=== PATIENT | male | born 1965 | race Caucasian/White ===

== ENCOUNTER 2019-09-18 09:40 | Emergency (ER) | payer OTHER ==
--- NOTE | 2019-09-18 10:04 | ERPHSYRPT ---
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 Upon arrival to the emergency department, he states he is a little lightheaded but much less dizzy now. Patient has never had symptoms like this before. Patient did eat and drink a few times prior to his symptoms. He denies chest pain he denies shortness of breath he denies abdominal pain. Patient was seen by a nurse practitioner at the facility and was told to come to the emergency room for further evaluation. Patient has no medical problems other been diagnosed in the past. Timing/Duration: today Severity: mild Character of Deficits: none Deficits: no difficulties Baseline/Normal Cognition: alert oriented x 3 Current Cognition: alert oriented x 3 Baseline Gait: walks w/o assistance Associated Symptoms: nausea Allergies/Adverse Reactions: No Known Drug Allergies Allergy (Unverified 09/18/19 10:08) Home Medications: No Reportable Medications [No Reported Medications] 09/18/19 [History] - Review of Systems Constitutional: No Symptoms Eyes: No Symptoms Ears, Nose, & Throat: No Symptoms Respiratory: No Symptoms Cardiac: No Symptoms Abdominal/Gastrointestinal: No Symptoms Genitourinary Symptoms: No Symptoms Musculoskeletal: No Symptoms Skin: No Symptoms Neurological: Dizziness Psychological: No Symptoms Endocrine: No Symptoms Hematologic/Lymphatic: No Symptoms Immunological/Allergic: No Symptoms All Other Systems: Reviewed and Negative - Past Medical History Neurological History: No Pertinent History ENT History: No Pertinent History Cardiac History: No Pertinent History Respiratory History: No Pertinent History Endocrine Medical History: No Pertinent History Musculoskeletal History: No Pertinent History GI Medical History: No Pertinent History History: No Pertinent History Psycho-Social History: No Pertinent History Male Reproductive Disorders: No Pertinent History - Past Surgical History Neuro Surgical History: No Pertinent History Cardiac: No Pertinent History Respiratory: No Pertinent History Gastrointestinal: No Pertinent History Genitourinary: No Pertinent History Musculoskeletal: No Pertinent History Male Surgical History: No Pertinent History - Nursing Vital Signs Nursing Vital Signs: Initial Vital Signs Temperature 97.3 F 09/18/19 09:48 Pulse Rate 72 09/18/19 09:48 Respiratory Rate 18 09/18/19 09:48 Blood Pressure 132/66 09/18/19 09:48 O2 Sat by Pulse Oximetry 96 09/18/19 09:48 Pain Scale Pain Intensity 0 - Emerson Coma Scale Best Eye Response (Jason): (4) open spontaneously Best Verbal Response (Emerson): (5) oriented Best Motor Response (Emerson): (6) obeys commands Emerson Total: 15 - Physical Exam General Appearance: no apparent distress, alert, anxiety Eye Exam: bilateral eye: normal inspection, PERRL, EOMI Ears, Nose, Throat Exam: normal ENT inspection, TMs normal, moist mucous membranes Neck Exam: normal inspection, non-tender, supple, full range of motion Respiratory: normal breath sounds, lungs clear, No chest tenderness, No respiratory distress Cardiovascular: regular rate/rhythm, normal heart sounds, normal peripheral pulses Gastrointestinal: soft, normal bowel sounds, No tenderness Rectal Exam: not done Back Exam: normal inspection, normal range of motion, No CVA tenderness, No vertebral tenderness Extremity Exam: normal inspection, normal range of motion, pelvis stable Mental Status: alert, oriented x 3, cooperative equity holder Exam: normal hearing, normal speech, PERRL Coordination/Gait: normal finger to nose, normal gait Motor/Sensory: no motor deficit, no sensory deficit Skin Exam: normal color, warm, dry SpO2 Interpretation: normal O2 Delivery: Room Air Ordered Tests: Active Orders 24 hr Category Date Time Status Accucheck STAT Care 09/18/19 10:19 Active Clean Catch Urine Specimen STAT Care 09/18/19 10:19 Active EKG-ER Only STAT Care 09/18/19 10:19 Active IV Insertion STAT Care 09/18/19 10:19 Active CBC W DIFF Stat Lab 09/18/19 10:50 Completed CMP Stat Lab 09/18/19 10:50 Completed CULTURE,URINE Stat Lab 09/18/19 12:30 Received ETHYL ALCOHOL Stat Lab 09/18/19 10:50 Completed TROPONIN Q3H Lab 09/18/19 10:50 Completed TROPONIN Q3H Lab 09/18/19 13:30 Ordered TROPONIN Q3H Lab 09/18/19 16:30 Ordered TROPONIN Q3H Lab 09/18/19 19:30 Ordered TROPONIN Q3H Lab 09/18/19 22:30 Ordered UA W/RFX UR CULTURE Stat Lab 09/18/19 12:30 Completed Urine Triage Profile Stat Lab 09/18/19 12:30 Received Medication Summary Discontinued Medications Generic Name Dose Route Start Last Admin Trade Name Rufina PRN Reason Stop Dose Admin Sodium Chloride 1,000 mls @ 999 mls/hr 09/18/19 10:19 09/18/19 11:07 Sodium Chloride 0.9% 1000 Ml IV 09/18/19 11:19 999 mls/hr .Q1H1M STA Administration Sodium Chloride Confirm 09/18/19 11:01 Sodium Chloride 0.9% 1000 Ml Administered 09/18/19 11:02 Dose 1,000 mls @ ud .ROUTE .STK-MED ONE Ondansetron HCl 4 mg 09/18/19 10:19 09/18/19 11:07 Zofran 4 Mg/2 Ml Vial IV 09/18/19 10:20 4 mg STAT ONE Administration Ondansetron HCl Confirm 09/18/19 11:00 Zofran 4 Mg/2 Ml Vial Administered 09/18/19 11:01 Dose 4 mg .ROUTE .STK-MED ONE Lab/Rad Data: Laboratory Result Diagrams 09/18/19 10:50 09/18/19 10:50 Laboratory Results 09/18/19 09/18/19 09/18/19 Range/Units 12:30 10:50 10:50 WBC (4.0-10.5) K/mm3 RBC (4.1-5.6) M/mm3 Hgb (12.5-18.0) gm/dl Hct (42-50) % MCV (78-100) fl MCH (26-32) pg MCHC (32-36) g/dl RDW (11.5-14.0) % Plt Count (150-450) K/mm3 MPV (7.5-11.0) fl Gran % (36.0-66.0) % Eos # (Auto) (0-0.5) Absolute Lymphs (auto) (1.0-4.6) Absolute Monos (auto) (0.0-1.3) Lymphocytes % (24.0-44.0) % Monocytes % (0.0-12.0) % Eosinophils % (0.00-5.0) % Basophils % (0.0-0.4) % Absolute Granulocytes (1.4-6.9) Basophils # (0-0.4) Sodium 142 (137-145) mmol/L Potassium 3.9 (3.5-5.1) mmol/L Chloride 103 (98-107) mmol/L Carbon Dioxide 30 (22-30) mmol/L Anion Gap 13.7 (5-15) MEQ/L BUN 13 (9-20) mg/dL Creatinine 0.65 L (0.66-1.25) mg/dL Estimated GFR > 60.0 ML/MIN Glucose 100 (74-106) mg/dL Calcium 9.4 (8.4-10.2) mg/dL Total Bilirubin 1.30 (0.2-1.3) mg/dL AST 24 (17-59) U/L ALT 22 (0-50) U/L Alkaline Phosphatase 101 (38-126) U/L Troponin I < 0.012 (0.000-0.034) ng/mL Serum Total Protein 7.7 (6.3-8.2) g/dL Albumin 4.3 (3.5-5.0) g/dL Urine Color YELLOW (YELLOW) Urine Appearance SLIGHTLY CLOUDY (CLEAR) Urine pH 5.0 (5-6) Ur Specific [place] 1.024 (1.005-1.025) Urine Protein NEGATIVE (Negative) Urine Ketones NEGATIVE (NEGATIVE) Urine Blood NEGATIVE (0-5) Ramsey/ul Urine Nitrite NEGATIVE (NEGATIVE) Urine Bilirubin NEGATIVE (NEGATIVE) Urine Urobilinogen NEGATIVE (0-1) mg/dL Ur Leukocyte Esterase NEGATIVE (NEGATIVE) Urine WBC (Auto) 6-10 (0-5) /HPF Urine RBC (Auto) NONE (0-2) /HPF U Hyaline Cast (Auto) 3-5 (0-2) /LPF U Epithel Cells (Auto) NONE (FEW) /HPF Urine Bacteria (Auto) RARE (NEGATIVE) /HPF Urine Mucus (Auto) SLIGHT (NEGATIVE) /HPF Urine Culture Reflexed YES (NO) Urine Glucose NEGATIVE (NEGATIVE) mg/dL Ethyl Alcohol < 10 (0-10) mg/dL 09/18/19 Range/Units 10:50 WBC 13.0 H (4.0-10.5) K/mm3 RBC 5.49 (4.1-5.6) M/mm3 Hgb 16.5 (12.5-18.0) gm/dl Hct 48.5 (42-50) % MCV 88.3 (78-100) fl MCH 30.1 (26-32) pg MCHC 34.0 (32-36) g/dl RDW 13.3 (11.5-14.0) % Plt Count 185 (150-450) K/mm3 MPV 11.3 H (7.5-11.0) fl Gran % 84.0 H (36.0-66.0) % Eos # (Auto) 0.05 (0-0.5) Absolute Lymphs (auto) 1.31 (1.0-4.6) Absolute Monos (auto) 0.69 (0.0-1.3) Lymphocytes % 10.1 L (24.0-44.0) % Monocytes % 5.3 (0.0-12.0) % Eosinophils % 0.4 (0.00-5.0) % Basophils % 0.2 (0.0-0.4) % Absolute Granulocytes 10.95 H (1.4-6.9) Basophils # 0.03 (0-0.4) Sodium (137-145) mmol/L Potassium (3.5-5.1) mmol/L Chloride (98-107) mmol/L Carbon Dioxide (22-30) mmol/L Anion Gap (5-15) MEQ/L BUN (9-20) mg/dL Creatinine (0.66-1.25) mg/dL Estimated GFR ML/MIN Glucose (74-106) mg/dL Calcium (8.4-10.2) mg/dL Total Bilirubin (0.2-1.3) mg/dL AST (17-59) U/L ALT (0-50) U/L Alkaline Phosphatase (38-126) U/L Troponin I (0.000-0.034) ng/mL Serum Total Protein (6.3-8.2) g/dL Albumin (3.5-5.0) g/dL Urine Color (YELLOW) Urine Appearance (CLEAR) Urine pH (5-6) Ur Specific [place] (1.005-1.025) Urine Protein (Negative) Urine Ketones (NEGATIVE) Urine Blood (0-5) Ramsey/ul Urine Nitrite (NEGATIVE) Urine Bilirubin (NEGATIVE) Urine Urobilinogen (0-1) mg/dL Ur Leukocyte Esterase (NEGATIVE) Urine WBC (Auto) (0-5) /HPF Urine RBC (Auto) (0-2) /HPF U Hyaline Cast (Auto) (0-2) /LPF U Epithel Cells (Auto) (FEW) /HPF Urine Bacteria (Auto) (NEGATIVE) /HPF Urine Mucus (Auto) (NEGATIVE) /HPF Urine Culture Reflexed (NO) Urine Glucose (NEGATIVE) mg/dL Ethyl Alcohol (0-10) mg/dL - Progress Progress: improved Progress Note: 09/18/19 13:12 Drink plenty of fluids. Follow-up with a primary care physician on an outpatient basis for further management. Counseled pt/family regarding: lab results, diagnosis, need for follow-up - Departure Departure Disposition: Home Clinical Impression: Dizziness, Leukocytosis Condition: Stable Critical Care Time: No Additional Instructions: Drink plenty of fluids. Follow-up with an outpatient physician for further work -up and management. Forms: Work/School Release Form
[2019-09-18] MEDS ORDERED: Sodium Chloride 0.9% 1000 ML 1,000 ML IV STA (10:19)
[2019-09-18] MEDS ORDERED: Zofran 4 MG/2 ML VIAL IV ONE (10:19)
[2019-09-18 10:52] LABS: Absolute Neutrophil Ct (ANC) 10.95 (1.4-6.9); BASOPHIL % 0.2 % (0.0-0.4); Basophil (Absolute #) 0.03 (0-0.4); Eosinophil % 0.4 % (0.00-5.0); Eosinophil (Absolute #) 0.05 (0-0.5); Hematocrit 48.5 % (42-50); Hemoglobin 16.5 gm/dl (12.5-18.0); Lymphocyte (Absolute #) 1.31 (1.0-4.6); Lymphocytes % 10.1 % (24.0-44.0); Mean Cell Volume 88.3 fl (78-100); Mean Corpuscular Hemoglobin 30.1 pg (26-32); Mean Platelet Volume 11.3 fl (7.5-11.0); Monocyte (Absolute #) 0.69 (0.0-1.3); Monocytes % 5.3 % (0.0-12.0); Platelet Count 185 K/mm3 (150-450); Red Blood Count 5.49 M/mm3 (4.1-5.6); Red Cell Distribution Width 13.3 % (11.5-14.0)
[2019-09-18] MEDS ORDERED: Zofran 4 MG/2 ML VIAL ONE (11:00)
[2019-09-18] MEDS ORDERED: Sodium Chloride 0.9% 1000 ML 1,000 ML ONE (11:01)
[2019-09-18 11:08] LABS: ALBUMIN 4.3 g/dL (3.5-5.0); ALKALINE PHOSPHATASE 101 U/L (38-126); ANION GAP 13.7 MEQ/L (5-15); BLOOD UREA NITROGEN 13 mg/dL (9-20); CHLORIDE 103 mmol/L (98-107); Calcium 9.4 mg/dL (8.4-10.2); Carbon Dioxide 30 mmol/L (22-30); Creatinine 1 0.65 mg/dL (0.66-1.25); Glucose 100 mg/dL (74-106); Potassium 3.9 mmol/L (3.5-5.1); SGOT/AST 24 U/L (17-59); SGPT/ALT 22 U/L (0-50); SODIUM 142 mmol/L (137-145); Total Protein 7.7 g/dL (6.3-8.2)
[2019-09-18 11:09] LABS: ETHYL ALCOHOL < 10 mg/dL (0-10)
[2019-09-18 12:52] LABS: Appearance SLIGHTLY CLOUDY (CLEAR); Bacteria RARE /HPF (NEGATIVE); Bilirubin NEGATIVE (NEGATIVE); Blood NEGATIVE Ery/ul (0-5); Glucose NEGATIVE (NEGATIVE); Ketones NEGATIVE (NEGATIVE); Leukocyte Esterase NEGATIVE (NEGATIVE); Mucus SLIGHT /HPF (NEGATIVE); Nitrite NEGATIVE (NEGATIVE); Protein,Urine Dip NEGATIVE (Negative); Specific Gravity 1.024 (1.005-1.025); Urobilinogen NEGATIVE mg/dL (0-1)
[2019-09-18 13:12] LABS: Amphetamine,Urine NEGATIVE (NEGATIVE); Barbiturate,Urine NEGATIVE (NEGATIVE); Benzodiazepine,Urine NEGATIVE (NEGATIVE); Cocaine,Urine NEGATIVE (NEGATIVE); Methadone,Urine NEGATIVE (NEGATIVE); Opiate,Urine NEGATIVE (NEGATIVE); PCP,Urine NEGATIVE (NEGATIVE); THC,Urine NEGATIVE (NEGATIVE)
[2019-09-18 13:32] VITALS: BP 115/72; PULSE 67; O2SAT 97
== END 2019-09-18 13:32 | disposition home or self-care (01) ==
LOC: ED 09:40
DX: R42 Dizziness and giddiness (principal); D72.829 Elevated white blood cell count, unspecified
CPT/HCPCS: 36000; 36415; 80053; 80307; 81001; 82962; 84484; 85025; 87086; 93005; 96360; 96374; 99284; J2405; G0480

== ENCOUNTER 2023-10-30 10:26 | Day surgery (SDC) | payer OTHER ==
--- NOTE | 2023-10-30 08:51 | HP ---
DATE OF SURGERY: 10/30/2023 HISTORY OF PRESENT ILLNESS: The patient is a 58-year-old with no bloody stools. He had a positive Cologuard. Family history of father with colon cancer. He is in need of colonoscopy. PAST MEDICAL HISTORY: Arthritis, chronic obstructive pulmonary disease. He wears dentures. Some heartburn at times. PAST SURGICAL HISTORY: He denies prior surgery. MEDICATIONS: Trelegy Ellipta. ALLERGIES: NKDA. FAMILY HISTORY: Prostate cancer, colon cancer. SOCIAL HISTORY: Smoker. Chews tobacco. No alcohol abuse. REVIEW OF SYSTEMS: Twelve systems reviewed. No chest pain or palpitations. Other systems negative or noncontributory as above and per preadmission questionnaire. PHYSICAL EXAMINATION: Height 5 feet 8 inches. BMI 38.77. GENERAL: No acute distress. HEENT: Sclerae nonicteric. EOMI. Oral mucous membranes moist. NECK: No JVD. CHEST: Equal excursion, nonlabored breathing. CVS: Regular rate and rhythm. ABDOMEN: Soft. No peritoneal signs. EXTREMITIES: No significant edema. NEURO: Alert, oriented, moving extremities symmetrically. RECTAL: Deferred timed to endoscopy exam. PSYCH: Appropriate mood and affect. SKIN: Dry. IMPRESSION: Positive Cologuard. No prior colonoscopy. Family history of colon cancer. The patient is in need of colonoscopy. He was shown the risk sheet, explained the procedure in detail including but not limited to risk of bleeding or infection, risk of bowel injury or perforation, possibly requiring further procedure, risk of incomplete exam possibly requiring barium enema, other studies or procedures, risk of missed or nondiagnosis, risk of anesthesia or sedation, risk of bowel prep but not limited to. He understands and agrees to the planned procedure, will proceed with outpatient colonoscopy under MAC anesthesia. Continue medications for reflux, heartburn, arthritis, chronic obstructive pulmonary disease.
[2023-10-30] MEDS ORDERED: Lactated Ringers 1,000 ML IV ONE (10:48)
[2023-10-30 10:55] VITALS: RESP 18
[2023-10-30] MEDS: Lactated Ringers 1,000 ML IV SCH (11:02)
[2023-10-30] MEDS ORDERED: DIPRIVAN 200 MG/20 ML IV ONE ×2 (13:42→13:59)
[2023-10-30 14:43] VITALS: PULSE 65
--- NOTE | 2023-10-30 15:04 | OP ---
SURGERY DATE/TIME: 10/30/2023 1232 PREOPERATIVE DIAGNOSIS: Positive Cologuard, family history of colon cancer. POSTOPERATIVE DIAGNOSES: 1) Polypoid 2 to 2.5 cm sigmoid mass. 2) Polyp transverse colon, sigmoid colon and rectum. PROCEDURES: 1) Colonoscopy to cecum. 2) Hot snare piecemeal biopsy (incomplete removal) polypoid 2 to 2.5 cm mass sigmoid colon/proximal sigmoid colon. 3) Hot snare polypectomy transverse colon polyp. 4) Hot snare polypectomy sigmoid colon polyp x2, hot snare polypectomy rectal polyp x2. 5) Lift injection technique of hot snare piecemeal biopsy of proximal sigmoid colon polyp (unable to completely remove). 6) Ink spot tattooing of location proximal sigmoid colon polyppoid mass biopsy site. SURGEON: Dr. Fady Stafford M.D. ANESTHESIA: General. QUANTITATIVE BLOOD LOSS: Minimal. INDICATIONS: As noted above. Risks and benefits explained in detail but not limited to and consent obtained. DESCRIPTION OF PROCEDURE AND FINDINGS: The patient is taken to the endoscopy room. MAC anesthesia induced. After official time out and no disagreement with planned procedure, digital rectal exam did not reveal any rectal masses. Video colonoscope inserted and passed up through the tortuous sigmoid, descending, transverse and ascending colon around to the cecum. Appendiceal orifice and valve well visualized and photo documented. Prep overall was only fair with liquidy semisolid stool throughout the colon this is suctioned irrigated out as clear as possible. The scope is slowly and carefully withdrawn over the next 14 minutes. Transverse colon site removed with hot snare polypectomy small polyp. Scope pulled back into the sigmoid colon. A couple small polyps removed with hot snare polypectomy that had benign appearance. There was however a polypoid mass some ink spot injection lift technique was used injected underneath. However even with this, the area was too firm and even cutting part of the snare would not come across this. Therefore our next best option a couple large pieces are taken with a snare and passed off for path. The ink spot tattoo injection about 1 cc to 1.5 cc at the base just distal to this polypoid mass is accomplished. The patient tolerated the procedure well. If family is available to discuss will probably keep him on clear liquids for a couple of days and advance his diet as tolerated. He is to return for increasing significant abdominal pain given this lesion and risk of any delayed issues at this biopsy polypoid site.
[2023-10-30 15:11] VITALS: BP 124/65; TEMP 97; O2SAT 97
== END 2023-10-30 15:50 | disposition home or self-care (01) ==
LOC: SDC 10:26
PROVIDERS: ATTEND Surgery
DX: C18.7 Malignant neoplasm of sigmoid colon (principal); D12.7 Benign neoplasm of rectosigmoid junction; D12.3 Benign neoplasm of transverse colon; R19.5 Other fecal abnormalities; Z80.0 Family history of malignant neoplasm of digestive organs; Z80.42 Family history of malignant neoplasm of prostate; D12.5 Benign neoplasm of sigmoid colon
CPT/HCPCS: J2704